=== PATIENT | male | born 1960 | race Two or more races ===

== ENCOUNTER 2019-02-21 19:56 | Emergency (ER) | payer SELFPAY ==
[~2019-02-21] VITALS: Ht 170.2 cm; Wt 80.7 kg
[~2019-02-21 19:56] MED LIST: IBUP1POW8; LOSA50TA26
[2019-02-22] MEDS: LIDOCAINE 1% HCL (LOCAL ANESTH.) INJ 20ML MDV ID ONE (00:35)
[2019-02-22 01:05] VITALS: BP 161/89
[2019-02-22] MEDS: TETANUS-DIPTH-ACEL PERTUSSIS 0.5ML SYRG IM ONE (01:32)
== END 2019-02-22 01:10 | disposition home or self-care (01) ==
LOC: ER 19:56
DX: S61.412A Laceration without foreign body of left hand, initial encounter (principal); I10 Essential (primary) hypertension; W26.9XXA Contact with unspecified sharp object(s), initial encounter; Y99.8 Other external cause status; Y93.89 Activity, other specified; Y92.89 Other specified places as the place of occurrence of the external cause
CPT/HCPCS: 12001; 90471; 90715; 99283; J2001

== ENCOUNTER 2020-04-09 14:33 | Inpatient (IN) | payer MEDICAID, OTHER, SELFPAY ==
[~2020-04-09] VITALS: Ht 165.1 cm; Wt 85.2 kg
[2020-04-09] MEDS ORDERED: SODIUM CHLORIDE 0.9% 1,000 ML IV ONE (14:59)
[2020-04-09] MEDS ORDERED: cefTRIAXone 1GM/50ML D5W 50 ML IV ONE (15:30)
[2020-04-09] MEDS ORDERED: DOXYCYCLINE 100 MG TAB/CAP PO ONE (15:30)
[2020-04-09] MEDS ORDERED: DexAMETHasone SOD PHOS 10MG/1ML VIAL INJ IV ONE (15:30)
[2020-04-09 18:19] LABS: Basophils # (auto) 0 10 ^3/uL (0-0.2); Basophils % (auto) 0.1 % (0.0-2.0); Eosinophils # (auto) 0 10 ^3/uL (0-0.8); Hematocrit 41.6 % (41.0-53.0); Hemoglobin 14.3 g/dL (13.5-17.5); Lymphocytes # (auto) 0.7 10 ^3/uL (0.4-5.4); Lymphocytes % (auto) 10.3 % (10.0-50.0); Mean Corpuscular Hemoglobin 30.9 pg (28.0-32.0); Mean Corpuscular Hgb Conc. 34.4 g/dL (32.0-36.0); Mean Corpuscular Volume 89.8 fL (80.0-100.0); Monocytes # (auto) 0.5 10 ^3/uL (0-1.3); Neutrophils # (auto) 5.6 10 ^3/uL (1.6-8.6); Neutrophils % (auto) 82.6 % (37.0-80.0); Platelet Count (auto) 147 10^3/uL (140-450); Red Blood Cells 4.63 10^6/uL (4.5-5.90); White Blood Cell 6.8 10^3/uL (4.4-10.8)
[2020-04-09 18:39] LABS: Alanine Aminotransferase 49 U/L (16-61); Albumin 2.7 g/dL (3.4-5.0); Anion Gap 6 (5-15); Aspartate Aminotransferase 38 U/L (15-37); Blood Urea Nitrogen 14 mg/dL (7-18); Calcium 7.4 mg/dL (8.5-10.1); Carbon Dioxide 26 mmol/L (21-32); Chloride 106 mmol/L (98-107); GFR African American 98 mL/min; GFR Non-African American 81 mL/min; Glucose 105 mg/dL (74-106); Potassium 3.7 mmol/L (3.5-5.1); Sodium 138 mmol/L (136-145)
[2020-04-09 18:46] LABS: Alkaline Phosphatase 90 U/L (45-117); Bilirubin, Total 0.6 mg/dL (0.2-1.0); Total Protein 6.7 g/dL (6.4-8.2)
[2020-04-09] MEDS ORDERED: SODIUM CHLORIDE 0.9% 1,000 ML IV SCH (19:32)
[2020-04-09] MEDS ORDERED: ACETAMINOPHEN 500 MG TAB PO PRN (19:45)
[2020-04-09] MEDS ORDERED: PROMETHAZINE HCL 25 MG/ML 1ML IV PRN (19:45)
[2020-04-09] MEDS ORDERED: NITROGLYCERIN 0.4 MG SL TAB SL PRN (19:45)
[2020-04-09] MEDS ORDERED: MORPHINE SULF INJ 2 MG/ML SYRINGE 1ML IV PRN (19:45)
[2020-04-09] MEDS ORDERED: levoFLOXacin 500MG 100 ML IV ONE (19:45)
[2020-04-09] MEDS ORDERED: traMADol HCL 50 MG TAB PO PRN (19:45)
[2020-04-09] MEDS ORDERED: ALBUTEROL SULF 2.5 MG/0.5ML(0.5%) NEB SOLN NEB PRN (19:45)
[2020-04-09] MEDS ORDERED: TEMAZEPAM 15 MG CAP PO PRN (19:45)
[2020-04-09] MEDS ORDERED: LACTULOSE 20Gm/30ML SOLN PO PRN (19:45)
[2020-04-09] MEDS ORDERED: ALBUTEROL SULF HFA 90MCG INH 200DOSE IN SCH (22:00)
[2020-04-09] MEDS: FAMOTIDINE 20 MG TAB PO SCH (23:04)
[2020-04-09] MEDS: methylPREDNISolone SOD SUCC 40 MG/ML VL IV SCH (23:04)
[2020-04-09] MEDS: CLINDAMYCIN 600MG IV 50 ML IV SCH (23:04)
[2020-04-09] MEDS: ENOXAPARIN SOD 80 MG/0.8ML SYRINGE SC SCH (23:05)
--- NOTE | 2020-04-09 23:40 | NUR ---
Telemetry admit from ER Patient admitted to Telemetry unit, no SBAR received. Patient oriented to primary RN, unit, room, bed, and unit policies regarding patient care and visiting hours. Patient now on continuous telemetry monitoring, tele box #5 and telemetry reading on arrival to unit is 70 BPM. Patient placed on bedside oxygen 2L NC, weighed by bed scale and encouraged to call if they need something. Bed in lowest locked position with two side rails raised and call hidalgo within reach. Instructed on POC, All questions and concerns addressed, patient verbalized understanding.
[2020-04-10] VITALS (7 sets, daily range): BP systolic 133–152; BP diastolic 72–95
[2020-04-10] MEDS: CLINDAMYCIN 600MG IV 50 ML IV SCH ×3 (05:52→21:55)
[2020-04-10] MEDS: methylPREDNISolone SOD SUCC 40 MG/ML VL IV SCH ×2 (07:02→20:28)
--- NOTE | 2020-04-10 07:28 | NUR ---
Respiratory note: POX CHECK, NO RESP DISTRESS NOTED. HR 80, RR 18, SPO2 94% ON 2L N/C. BS ARE CLEAR. WILL CONTINUE TO MONITOR.
--- NOTE | 2020-04-10 07:48 | NUR ---
OPENING SHIFT NOTE Assumed care of patient. PT is awake and alert and eating breakfast comfortably in bed. No S/S of distress/SOB. Instructed on POC and to call for assist PRN. Bed in lowest locked position, call light within reach, side rails up x2, fall precautions in place. Will continue to monitor for changes Q1hr and PRN.
[2020-04-10 08:36] LABS: Basophils # (auto) 0 10 ^3/uL (0-0.2); Basophils % (auto) 0.9 % (0.0-2.0); Eosinophils # (auto) 0 10 ^3/uL (0-0.8); Hematocrit 46.1 % (41.0-53.0); Hemoglobin 15.7 g/dL (13.5-17.5); Lymphocytes # (auto) 0.6 10 ^3/uL (0.4-5.4); Lymphocytes % (auto) 11.4 % (10.0-50.0); Mean Corpuscular Volume 91.3 fL (80.0-100.0); Monocytes # (auto) 0.2 10 ^3/uL (0-1.3); Monocytes % (auto) 4.3 % (0.0-12.0); Neutrophils # (auto) 4.2 10 ^3/uL (1.6-8.6); Neutrophils % (auto) 83.4 % (37.0-80.0); Nucleated Red Blood Cells % 0.1 %; Platelet Count (auto) 173 10^3/uL (140-450); Red Blood Cells 5.05 10^6/uL (4.5-5.90); Red Cell Distribution Width 12.9 % (11.8-14.3)
[2020-04-10 09:11] LABS: Albumin 2.8 g/dL (3.4-5.0); Potassium 3.6 mmol/L (3.5-5.1)
[2020-04-10 09:19] LABS: BUN/Creatinine Ratio 16.7; Bilirubin, Total 0.6 mg/dL (0.2-1.0); Total Protein 7.5 g/dL (6.4-8.2)
[2020-04-10] MEDS: ASCORBIC ACID 1,000 MG TAB PO SCH (10:12)
[2020-04-10] MEDS: FAMOTIDINE 20 MG TAB PO SCH ×2 (10:12→21:55)
[2020-04-10] MEDS: levoFLOXacin 500MG 100 ML IV SCH (10:12)
[2020-04-10] MEDS: ZINC SULFATE 220mg CAP or TAB PO SCH (10:12)
[2020-04-10] MEDS: ENOXAPARIN SOD 80 MG/0.8ML SYRINGE SC SCH ×2 (10:12→21:55)
[2020-04-10] MEDS ORDERED: BUDESONIDE (INHALATION) 0.5 MG/2 ML NEB NEB ONE (12:00)
--- NOTE | 2020-04-10 19:40 | NUR ---
Opening Shift Note Assumed care of patient, awake and alert. No S/S of distress/SOB or pain. POC discussed and questions answered. Bed is locked in lowest position with side rails up x2 for safety. Call light is within reach and patient encouraged to call as needed, will continue to monitor for changes Q1hr and PRN.
[2020-04-10] MEDS: BUDESONIDE (INHALATION) 0.5 MG/2 ML NEB NEB SCH (22:26)
[2020-04-11] VITALS (7 sets, daily range): BP systolic 142–156; BP diastolic 80–97
[2020-04-11] MEDS: CLINDAMYCIN 600MG IV 50 ML IV SCH ×3 (05:55→22:13)
[2020-04-11] MEDS: BUDESONIDE (INHALATION) 0.5 MG/2 ML NEB NEB SCH ×2 (07:32→23:00)
--- NOTE | 2020-04-11 07:32 | NUR ---
RT NOTE: PULMICORT TX HELD DUE TO PT NOT BEING IN NEGATIVE PRESSURE ROOM.
--- NOTE | 2020-04-11 08:37 | NUR ---
OPENING SHIFT NOTE Resumed care of patient. PT is alert and oriented. No S/S of distress/SOB. Instructed on POC and to call for assist PRN. Bed in lowest locked position, call light within reach, side rails up x2, fall precautions in place. Will continue to monitor for changes Q1hr and PRN.
[2020-04-11] MEDS: methylPREDNISolone SOD SUCC 40 MG/ML VL IV SCH ×2 (08:41→22:12)
[2020-04-11] MEDS: FAMOTIDINE 20 MG TAB PO SCH ×2 (09:30→22:13)
[2020-04-11] MEDS: ZINC SULFATE 220mg CAP or TAB PO SCH (09:30)
[2020-04-11] MEDS: ASCORBIC ACID 1,000 MG TAB PO SCH (09:30)
[2020-04-11] MEDS: ENOXAPARIN SOD 80 MG/0.8ML SYRINGE SC SCH ×2 (09:30→22:13)
[2020-04-11] MEDS: levoFLOXacin 500MG 100 ML IV SCH (09:30)
--- NOTE | 2020-04-11 19:10 | NUR ---
Opening Shift Note Assumed care of patient, awake and alert. No S/S of distress/SOB or pain. Instructed on POC and to call for assist PRN, will continue to monitor for changes Q1hr and PRN.
[2020-04-12 05:18] VITALS: BP 148/88
[2020-04-12] MEDS: CLINDAMYCIN 600MG IV 50 ML IV SCH ×2 (05:38→13:03)
--- NOTE | 2020-04-12 07:05 | NUR ---
Closing Note Patient status has not change, endorsed care to dayshift nurse.
[2020-04-12] MEDS: methylPREDNISolone SOD SUCC 40 MG/ML VL IV SCH (07:45)
[2020-04-12 09:39] VITALS: BP 147/86
[2020-04-12] MEDS: levoFLOXacin 500MG 100 ML IV SCH (10:00)
[2020-04-12] MEDS: ZINC SULFATE 220mg CAP or TAB PO SCH (10:00)
[2020-04-12] MEDS: ENOXAPARIN SOD 80 MG/0.8ML SYRINGE SC SCH (10:00)
[2020-04-12] MEDS: FAMOTIDINE 20 MG TAB PO SCH (10:00)
[2020-04-12] MEDS: ASCORBIC ACID 1,000 MG TAB PO SCH (10:00)
[2020-04-12 12:43] VITALS: BP 140/98
[2020-04-12] MEDS ORDERED: POTASSIUM CHL 20 Meq TABLET PO ONE (14:15)
[2020-04-12] MEDS ORDERED: FUROSEMIDE 40 MG/4 ML VIAL IV ONE (14:15)
--- NOTE | 2020-04-12 14:18 | NUR ---
MD MOREL ROUNDED ON PATIENT ORDER FOR LASIX X1 THEN POSSIBLE DISCHARGE THIS EVENING
[2020-04-12] MEDS ORDERED: MULTTAB75 PO (16:28)
[2020-04-12] MEDS ORDERED: METH4PAK PO (16:28)
[2020-04-12] MEDS ORDERED: LEVO750T64 PO (16:28)
[2020-04-12] MEDS ORDERED: POM PO (16:28)
[2020-04-12] MEDS ORDERED: ASCO10003 PO (16:28)
[2020-04-12 16:42] VITALS: BP 143/92
--- NOTE | 2020-04-12 18:21 | NUR ---
PT DISCHARGED HOME TELE MONITOR REMOVED SENT BACK TO TELE, IV REMOVED DRESSING IN PLACE, NO RESPIRATORY DISTRESS NOTED/
[2020-04-12] MEDS ORDERED: PULMICORT 180 MCG FLEXHALER PO SCH (22:00)
== END 2020-04-12 18:20 | disposition home or self-care (01) | DRG 137 ==
LOC: ER 14:33 → TELE 14:34 → TELE-EAST 23:33
PROVIDERS: ADMIT Internal Medicine; ATTEND Internal Medicine
DX: U07.1 COVID-19 (principal); E43 Unspecified severe protein-calorie malnutrition; J12.89 Other viral pneumonia; J96.00 Acute respiratory failure, unspecified whether with hypoxia or hypercapnia; I10 Essential (primary) hypertension; Z68.31 Body mass index [BMI] 31.0-31.9, adult
CPT/HCPCS: 36415; 71045; 80053; 83880; 84484; 85025; 87070; 87804; 87880; 96361; 96374; G0378; J0696; J1100; J1956; J3490

== ENCOUNTER 2021-06-19 17:04 | Emergency (ER) | payer MEDICAID ==
[~2021-06-19] VITALS: Ht 172.7 cm; Wt 82.6 kg
[~2021-06-19 17:04] MED LIST changes: +ASCO10003 PO; -IBUP1POW8; +LEVO750T64 PO; -LOSA50TA26; +LOSA50TA7; +METH4PAK PO; +MULTTAB75 PO; +POM PO
[2021-06-19] MEDS ORDERED: cloNIDine HCL 0.1 MG TAB ONE (17:10)
[2021-06-19] MEDS ORDERED: cloNIDine HCL 0.1 MG TAB PO ONE (17:15)
[2021-06-19 18:12] LABS: Basophils # (auto) 0 10 ^3/uL (0-0.2); Basophils % (auto) 0.5 % (0.0-2.0); Eosinophils # (auto) 0.1 10 ^3/uL (0-0.8); Eosinophils % (auto) 0.8 % (0.0-7.0); Hematocrit 44.6 % (41.0-53.0); Hemoglobin 15.5 g/dL (13.5-17.5); Lymphocytes # (auto) 1.3 10 ^3/uL (0.4-5.4); Lymphocytes % (auto) 14.1 % (10.0-50.0); Mean Corpuscular Hemoglobin 31.2 pg (28.0-32.0); Mean Corpuscular Hgb Conc. 34.8 g/dL (32.0-36.0); Mean Corpuscular Volume 89.6 fL (80.0-100.0); Monocytes # (auto) 0.6 10 ^3/uL (0-1.3); Monocytes % (auto) 6.9 % (0.0-12.0); Neutrophils # (auto) 7.1 10 ^3/uL (1.6-8.6); Neutrophils % (auto) 77.7 % (37.0-80.0); Red Blood Cells 4.98 10^6/uL (4.5-5.90); Red Cell Distribution Width 12.8 % (11.8-14.3); White Blood Cell 9.2 10^3/uL (4.4-10.8)
[2021-06-19 18:28] LABS: Albumin 3.7 g/dL (3.4-5.0); Anion Gap 6 (5-15); Blood Urea Nitrogen 16 mg/dL (7-18); Calcium 8.6 mg/dL (8.5-10.1); Carbon Dioxide 29 mmol/L (21-32); Chloride 108 mmol/L (98-107); Glucose 110 mg/dL (74-106); Potassium 3.2 mmol/L (3.5-5.1); Sodium 143 mmol/L (136-145)
[2021-06-19 18:33] LABS: Alanine Aminotransferase 35 U/L (16-61); Alkaline Phosphatase 120 U/L (45-117); Aspartate Aminotransferase 24 U/L (15-37); BUN/Creatinine Ratio 15.4; Bilirubin, Total 0.5 mg/dL (0.2-1.0); GFR African American 93 mL/min; GFR Non-African American 77 mL/min; Total Protein 7.1 g/dL (6.4-8.2)
[2021-06-19] MEDS ORDERED: POTASSIUM CHL 20 Meq TABLET PO ONE (18:45)
[2021-06-19 20:30] VITALS: BP 163/84
== END 2021-06-19 21:08 | disposition home or self-care (01) ==
LOC: ER 17:04
DX: R42 Dizziness and giddiness (principal); I16.0 Hypertensive urgency; I10 Essential (primary) hypertension
CPT/HCPCS: 36415; 70450; 80053; 84484; 85025; 93005

== ENCOUNTER 2022-08-10 10:42 | Emergency (ER) | payer OTHER, MEDICAID ==
[~2022-08-10] VITALS: Ht 170.2 cm; Wt 81.6 kg
[2022-08-10 11:47] VITALS: BP 167/95
[2022-08-10] MEDS ORDERED: cloNIDine HCL 0.1 MG TAB PO ONE (12:30)
[2022-08-10] MEDS ORDERED: LISI-707 PO (13:45)
== END 2022-08-10 14:37 | disposition home or self-care (01) ==
LOC: ER 10:42
DX: I10 Essential (primary) hypertension (principal); G44.209 Tension-type headache, unspecified, not intractable
CPT/HCPCS: 70450; 93005

== ENCOUNTER 2025-07-29 18:55 | Emergency (ER) | payer OTHER, MEDICAID ==
[~2025-07-29] VITALS: Ht 167.6 cm; Wt 81.8 kg
[~2025-07-29 18:55] MED LIST changes: +LEVO750T40 PO; -LEVO750T64 PO; +LISI-707 PO; +LOSA50TA12; -LOSA50TA7
--- NOTE | 2025-07-29 19:15 | ED.PDOC ---
History of Present Illness HPI Comments 65 year old male with PMHx HTN presents to the ED with a chief complaint of hypertension onset 1 day. Patient states he was experiencing dizziness yesterday, checked BP, was elevated took medication, took BP an hour after was still elevated, took another dose of medication, went to bed. This morning he checked BP, was still elevated, took morning dose. Around noon he began experiencing headache, BP was elevated. Upon ED arrival BP was 208/114. Currently rates headache 03/10. Denies chest pain, nausea, vomiting, diarrhea, shortness of breath, fever, chills, abdominal pain, weakness, numbness/tingling, blurred vision. No other symptoms or modifying factors present at this time. REVIEW OF SYSTEMS: General: No fever, no chills, or fatigue HEENT: No sore throat, no earache, no congestion, no neck pain. Cardiac: No chest pain. No palpitations. Lungs: No shortness of breath, no cough. GI: No nausea, no vomiting, no diarrhea, no constipation, no abdominal pain : No dysuria, frequency, or urgency. No hematuria. Musculoskeletal: No joint pain , no joint swelling, no extremity edema. Skin: No rash, no itching. Neuro: Headache, dizziness. (And as sated in HPI) PHYSICAL EXAM: General: Awake, alert and oriented. No acute distress. Skin: Skin in warm, dry and intact. Appropriate color for ethnicity. HEENT: The head is normocephalic and atraumatic. Conjunctivae are clear without exudates or hemorrhage. Sclera is non-icteric. Eyelids are normal in appearance without swelling or lesions. Oral mucosa is pink and moist Neck: The neck is supple with normal range of motion. No JVD. Cardiac: Heart rate and rhythm are normal. No murmurs, gallops, or rubs are auscultated. Respiratory: No signs of respiratory distress. Lung sounds are clear in all lobes bilaterally without rales, rhonchi, or wheezes. Abdominal: Abdomen is soft, non-tender without distention, guarding or rigidity. Bowel sounds are present and normoactive in all four quadrants. Extremities: Upper and lower extremities are atraumatic in appearance without deformity or edema. Neurological: The patient is awake, alert and oriented to person, place, and time with normal speech. Speech is clear. There is no facial asymmetry. No apparent neuro deficit. Psychiatric: Appropriate mood and affect. Good judgement and insight. Chief Complaint: High Blood Pressure Time Seen by MD: 19:15 Primary Care Provider: TISH Reviewed Notes: Medications, Allergies Allergies: Coded Allergies: NO KNOWN ALLERGIES (Unverified , 06/06/11) Home Meds Active Scripts Lisinopril & Hydrochlorothiazi (Zestoretic 20-25 mg) 1 Tab Tab, 1 TAB PO DAILY, #20 TAB Prov:SKIP ORDONEZ 08/10/22 Multiple Vitamins W/ Minerals (Strovite One) Tab, 1 TAB PO DAILY, #60 TAB 0 Refills Prov:TEODORO MOREL MD 04/12/20 Levofloxacin Hemihydrate (LEVOFLOXACIN) 750 Mg Tab, 1 TAB PO DAILY, #3 TAB Prov:TEODORO MOREL MD 04/12/20 Patients Own Medication (PATIENTS OWN MEDICATION) ., 180 MCG PO BID, #1 MISC PTS OWN MED-OBTAIN FROM PT AND SEND TO RX DRUG: FREQ: RX# EXP: DATE DISP: TECH: RPH: Prov:TEODORO MOREL MD 04/12/20 Methylprednisolone (Medrol Dosepak) 4 Mg Santi, 4 MG PO UD, #21 TAB UAD Prov:TEODORO MOREL MD 04/12/20 Ascorbic Acid (Gnp Vitamin C W/Beverley Hips) 1,000 Mg Tab, 1000 MG PO DAILY for 60 Days, #60 TAB Prov:TEODORO MOREL MD 04/12/20 Reported Medications Losartan Potassium (Cozaar) 50 Mg Tab 01/10/13 Information Source: Patient Mode of Arrival: Ambulatory Severity: Moderate Timing: Days Duration: Since onset Prehospital treatment: None Past Medical History PAST MEDICAL HISTORY: HTN Surgical History: Denies all surgeries Family History Family History: Reviewed,noncontributory to illness Social History Smoker: Non-Smoker Alcohol: Rarely Drugs: Denies Drug Use Lives In: Home Was a procedure done? Was a procedure done?: No EKG EKG : Pulse Rate (adult): 65 Cardiac Rhythm: NSR Differential Dx Considerations may include: Since the emergency, hypertensive emergency, end-organ damage, congestive heart failure, cardiomyopathy, electrolyte imbalance, migraine, CVA other X-Ray, Labs, Meds, VS Vital Signs Date Time Temp Pulse Resp B/P (MAP) Pulse Ox O2 Delivery O2 Flow Rate FiO2 07/29/25 23:00 64 10 128/76 (93) 94 07/29/25 22:48 65 07/29/25 22:37 65 07/29/25 21:30 68 11 150/79 (102) 95 07/29/25 21:00 66 12 161/94 (116) 93 07/29/25 20:38 98.2 07/29/25 20:37 68 162/89 07/29/25 20:00 68 10 162/89 (113) 93 07/29/25 20:00 68 07/29/25 19:38 98.3 07/29/25 19:37 77 195/103 07/29/25 19:30 98.4 79 12 195/103 (133) 94 98.4 07/29/25 19:30 Room Air* 0 21 07/29/25 19:03 98.2 82 16 208/114 97 98.2 Lab Test 07/29/25 20:04 07/29/25 19:53 07/29/25 19:17 Range/Units Troponin I High Sensitivity 11 10 </=54 ng/L POC Glucose 123 H 70-106 mg/dl White Blood Count 12.2 H 4.4-10.8 10^3/uL Red Blood Count 5.66 4.5-5.90 10^6/uL Hemoglobin 17.3 13.5-17.5 g/dL Hematocrit 49.8 41.0-53.0 % Mean Corpuscular Volume 88.1 80.0-100.0 fL Mean Corpuscular Hemoglobin 30.6 28.0-32.0 pg Mean Corpuscular Hemoglobin Concent 34.7 32.0-36.0 g/dL Red Cell Distribution Width 12.8 11.8-14.3 % Platelet Count 214 140-450 10^3/uL Mean Platelet Volume 8.7 6.9-10.8 fL Neutrophils (%) (Auto) 66.8 37.0-80.0 % Lymphocytes (%) (Auto) 23.9 10.0-50.0 % Monocytes (%) (Auto) 7.1 0.0-12.0 % Eosinophils (%) (Auto) 1.5 0.0-7.0 % Basophils (%) (Auto) 0.7 0.0-2.0 % Neutrophils # (Auto) 8.2 1.6-8.6 10 ^3/uL Lymphocytes # (Auto) 2.9 0.4-5.4 10 ^3/uL Monocytes # (Auto) 0.9 0-1.3 10 ^3/uL Eosinophils # (Auto) 0.2 0-0.8 10 ^3/uL Basophils # (Auto) 0.1 0-0.2 10 ^3/uL Nucleated Red Blood Cells 0.0 % Sodium Level 139 136-145 mmol/L Potassium Level 3.1 L 3.5-5.1 mmol/L Chloride Level 100 98-107 mmol/L Carbon Dioxide Level 30 20-31 mmol/L Anion Gap 9 5-15 Blood Urea Nitrogen 19 9-23 mg/dL Creatinine 1.00 0.700-1.30 mg/dL Glomerular Filtration Rate Calc 82 >90 mL/min BUN/Creatinine Ratio 19.0 10.0-20.0 Serum Glucose 106 74-106 mg/dL Calcium Level 9.9 8.7-10.4 mg/dL B-Type Natriuretic Peptide 16.99 0-100 pg/mL Current Medications Medications (Trade) Dose Ordered Sig/Faith Route Start Time Stop Time Status Last Admin Labetalol HCl (Labetalol HCl) 10 mg ONCE ONCE IV 07/29/25 19:15 07/29/25 19:16 DC 07/29/25 19:37 Acetaminophen (Tylenol Tablet Or Capsule) 1,000 mg ONCE ONCE PO 07/29/25 19:15 07/29/25 19:16 DC 07/29/25 19:38 Potassium Bicarbonate (Klor-Con/Ef) 50 meq ONCE ONCE PO 07/29/25 23:30 07/29/25 23:31 DC 07/29/25 23:32 [place] [address] Ph: [phone] DIAGNOSTIC IMAGING Diagnostic Imaging Report : [id number] Signed PATIENT: PHILIP ARAIZA ACCT: [id number] UNIT: [id number] : 1960 LOC: ER ROOM / BED: / AGE / SEX: 65 / M ADM STATUS: REG ER SERVICE 07 ORDERING PHYSICIAN: FER MICHAELS MD PROCEDURE(s): CXR1 - CHEST XRAY 1 VIEW REASON: cp ORDER NUMBER(s): [id number], ACCESSION NUMBER(s): [id number] CHEST RADIOGRAPH Indication: cp Technique: Single frontal view of the chest was obtained Comparison: EKG on DOS: 08/10/22 FINDINGS: Lines and Tubes: None Lungs: No focal consolidation. Prominence of the right paratracheal stripe Pleura: No effusion. No pneumothorax. Cardiomediastinal contours: Unremarkable Bones: No acute osseous abnormality. IMPRESSION: No acute cardiopulmonary disease. Prominence of the right paratracheal stripe which may be from vasculature with prominent thyroid gland/Mediastinal mass not completely excluded. CT may be considered for further evaluation. ATED BY: IZABELLA TODD DO DICTATED DATE/TIME: 07/29/251946 SIGNED BY: IZABELLA TODD DO SIGNED DATE/TIME: 07/29/251946 CC: Time of 1ST Reevaluation: 19:45 Reevaluation 1ST: Unchanged Patient Education/Counseling: Need For Follow Up Family Education/Counseling: No Family Present SEPSIS Sepsis Screen Date sepsis recognized/suspect: Jul 29, 2025 Time Sepsis recognized/suspect: 1907 Recent Procedure: No On Antibiotic Therapy: No Respiratory Rate >20: No Heart Rate >90: No Temp<36 C (96.8 F) or >38.3 C: No SBP <90 or MAP <65 mmHG: No New Acute Mental Status Change: No Is the patient on CPAP, BIPAP,: No Physician Orders Chest Xray 1 View (07/29/25 19:08) History Teacher (07/29/25 ) Electrocardigram (07/29/25 20:08) Electrocardigram (07/29/25 22:08) Vital Signs Date Time Temp Pulse Resp B/P (MAP) Pulse Ox O2 Delivery O2 Flow Rate FiO2 07/29/25 23:00 64 10 128/76 (93) 94 07/29/25 22:48 65 07/29/25 22:37 65 07/29/25 21:30 68 11 150/79 (102) 95 07/29/25 21:00 66 12 161/94 (116) 93 07/29/25 20:38 98.2 07/29/25 20:37 68 162/89 07/29/25 20:00 68 10 162/89 (113) 93 07/29/25 20:00 68 07/29/25 19:38 98.3 07/29/25 19:37 77 195/103 07/29/25 19:30 98.4 79 12 195/103 (133) 94 98.4 07/29/25 19:30 Room Air* 0 21 07/29/25 19:03 98.2 82 16 208/114 97 98.2 Laboratory Tests Test 07/29/25 19:17 White Blood Count 12.2 10^3/uL (4.4-10.8) H Medications Medications Dose Ordered Sig/Faith Route Start Time Stop Time Status Last Admin Dose Admin Acetaminophen 1,000 mg ONCE ONCE PO 07/29/25 19:15 07/29/25 19:16 DC 07/29/25 19:38 Labetalol HCl 10 mg ONCE ONCE IV 07/29/25 19:15 07/29/25 19:16 DC 07/29/25 19:37 Potassium Bicarbonate 50 meq ONCE ONCE PO 07/29/25 23:30 07/29/25 23:31 DC 07/29/25 23:32 Departure 1 Departure Time of Disposition: 21:41 Impression: Primary Impression: Hypertension Additional Impression: Leukocytosis Disposition: 01 HOME / SELF CARE / HOMELESS Condition: Stable Additional Instructions: Bandage discharge IN[employer]CCIONES DE MART[employer] Urgencias Instrucciones: Lilliana atentamente todas las instrucciones proporcionadas en royer paquete. Aunque le hayan dado el martínez del Departamento de Emergencias, esto no significa que tenga un "certificado de buena yolande". [] Hoy no se nair realizado ningn diagnstico definitivo para lorrie sntomas. Es posible que ests en proceso de desarrollar ari enfermedad grave. Es por eso que debe regresar al servicio de urgencias sin falta si presenta algn sntoma nuevo o que empeora (especialmente si lorrie sntomas incluyen dolor en el pecho, dificultad para respirar, dolor abdominal, fiebre, dolor de denilson, confusin, dificultad para nancie o caminar). Teodora es muy importante que consulte a un mdico de atencin primaria dentro de los prximos 3 a 5 trevino para realizar un seguimiento. Si no puede conseguir ari kylah, regrese al servicio de urgencias para ari nueva evaluacin. Hoy tuviste ari lectura de presin arterial elevada. La hipertensin no tratada puede tener consecuencias graves. Sin embargo, necesitas ari kylah de seguimiento para volver a revisar tu presin arterial y determinar si necesitas tratamiento o no. Haz ari kylah con tu proveedor de atencin primaria para esto dentro de la prxima semana. Dolor de denilson por migraa: instrucciones de cuidado Tabla de contenido Descripcin general Freelance Makeup Artist puedes cuidarte en casa? Cundo debes pedir ayuda? Crditos Descripcin general Las migraas son edenilson de denilson punzantes y dolorosos que suelen comenzar en un lado de la denilson. Pueden causar nuseas y vmitos y hacer que el paciente se vuelva sensible a la marily, los sonidos o los olores. Sin tratamiento, las migraas pueden durar desde 4 horas hasta algunos trevino. Los medicamentos pueden ayudar a prevenir las migraas o detenerlas ari vez que hayan comenzado. Street mdico puede ayudarlo a encontrar los que funcionan mejor para usted. El seguimiento mdico es ari parte fundamental de street tratamiento y street seguridad. Asegrese de programar y acudir a todas las citas, y llame a street mdico si tiene problemas. Teodora es ari buena idea saber los resultados de lorrie pruebas y llevar ari lista de los medicamentos que verona. Freelance Makeup Artist puedes cuidarte en casa? No conduzca si nair tomado algn analgsico recetado. Descanse en ari habitacin tranquila y oscura hasta que desaparezca el dolor de denilson. Cierre los ojos e intente relajarse o dormir. No ji televisin ni lilliana. Coloque un angela hmedo y fro o ari compresa fra sobre la kennedi dolorida jersey 10 a 20 minutos cada vez. Coloque un angela tanner entre la compresa fra y la piel. Utilice ari toalla tibia y hmeda o ari almohadilla trmica a temperatura baja para relajar los msculos tensos de los hombros y el emily. Pdale a alguien que le masajee suavemente el emily y los hombros. [place] lorrie medicamentos exactamente giorgio le hayan recetado. Llame a strete mdico si edilberto que tiene un problema con street medicamento. Recibir ms detalles sobre los medicamentos especficos que le recete street mdico. No tome medicamentos para el dolor de denilson con demasiada frecuencia. Hable con street mdico si est tomando medicamentos ms de 2 trevino a la semana para aliviar el dolor de denilson. Alejandrina demasiados analgsicos puede provocar ms edenilson de denilson. Estos se denominan edenilson de denilson por uso excesivo de medicamentos. Para prevenir las migraas Lleva un diario de tus edenilson de denilson para que puedas identificar qu los desencadena. Evitar los desencadenantes puede ayudarte a prevenirlos. Registra cundo comenz cada dolor de denilson, cunto dur y jewellery designer fue. Anota cualquier otro sntoma que hayas tenido junto con el dolor de denilson, giorgio nuseas, luces intermitentes o manchas oscuras, o sensibilidad a la marily brillante o a los ruidos rowena. Anota si el dolor de denilson se produjo cerca de tu perodo. Haz ari lista de todo lo que podra alejandra desencadenado el dolor de denilson. Los desencadenantes pueden incluir ciertos alimentos (chocolate, queso, vino) u o margaret, humo, marily brillante, estrs o falta de sueo. Si street mdico le nair recetado medicamentos para las migraas, tmelos segn las indicaciones. Puede alejandrina medicamentos solo cuando le d migraa y medicamentos que tome todo el tiempo para ayudar a prevenir las migraas. Si street mdico le nair recetado un medicamento para cuando le duele la denilson, tmelo ante la primera seal de migraa, a menos que le haya dado otras instrucciones. Si street mdico le nair recetado medicamentos para prevenir las migraas, tmelos e xactamente giorgio se lo indiquen. Llame a street mdico si edilberto que tiene un problema con street medicamento. Busque formas saludables de lidiar con el estrs. Las migraas son ms comunes jersey o inmediatamente despus de perodos estresantes. Intente encontrar f ormas de reducir el estrs, giorgio practicar la atencin plena o ejercicios de respiracin profunda. Duerma yon y stacie ejercicio, livan tenga cuidado de no esforzarse demasiado jersey el ejercicio, ya que puede provocarle dolor de denilson. Siga un horario regular para comer. Evite los alimentos y las bebidas que suelen desencadenar migraas, giorgio el chocolate, el alcohol (especialmente el vino tinto y el oporto), el aspartamo, el glutamato monosdico (GMS) y algunos aditivos presentes en los alimentos (giorgio los perritos calientes, el tocino, los embutidos, los quesos curados y los encurtidos). Limite la cafena. No tome demasiado caf, t o refrescos, livan no deje de alejandrina cafena de repente, ya que tambin puede provocarle migraas. No fume ni permita que otras personas fumen cerca de usted. Si necesita ayuda para dejar de fumar, hable con street mdico sobre programas y medicamentos para dejar de fumar. Estos pueden aumentar lorrie probabilidades de dejar de fumar para siempre. Si est tomando pldoras anticonceptivas o terapia hormonal, hable con street mdico sobre si jayro son las causas de lorrie migraas. Cundo debes pedir ayuda? Llame al 911 en cualquier momento en que considere que puede necesitar atencin de emergencia. Por ejemplo, llame si: Tiene sntomas de un accidente cerebrovascular, que pueden incluir: Entumecimiento repentino, parlisis o debilidad en la lakshmi, el brazo o la pierna , especialmente en un solo lado del cuerpo. Cambios repentinos en la visin. Dificultad repentina para hablar. Confusin repentina o dificultad para comprender afirmaciones simples. Problemas repentinos con la marcha o el equilibrio. Un dolor de denilson repentino y chalino que es diferente a los edenilson de denilson anteriores. Llame a street mdico ahora o busque atencin mdica inmediata si: Tienes fiebre y el emily rgido. Tu dolor de denilson empeora mucho. Preste atencin a los cambios en street yolande y asegrese de comunicarse con street mdico si: Lorrie edenilson de denilson empeoran, ocurren con ms frecuencia o cambian de alguna manera. Tienes nuevos sntomas. Tu sheryl se ve alterada por tus edenilson de denilson. Por ejemplo, a menudo faltas al trabajo, a la escuela o a otras actividades. No mejoras giorgio esperabas Crditos para la migraa: instrucciones de cuidado Actualizado al: 3 de 2023 Autor: Personal de [facility] [address], [facility] Junta de revisin clnica Toda la educacin de [facility] [address], [facility] es revisada por un equipo que incluye mdicos, enfermeras, profesionales avanzados, dietistas registrados y otros profesionales de la yolande. Aprender sobre los recuentos altos de glbulos blancos Tabla de contenidos Qu son los glbulos blancos? Qu sucede cuando tiene un recuento alto de glbulos blancos? Crditos Qu son los glbulos blancos? Los glbulos blancos (leucocitos) ayudan a proteger street cuerpo de infecciones. Normalmente, cuando los grmenes ingresan a street cuerpo, street cuerpo produce ms glbulos blancos que buscan y destruyen los grmenes. Con menos frecuencia, hay problemas mdicos en los que el cuerpo puede producir muchos ms glbulos blancos de los que necesita. Qu sucede cuando tiene un recuento alto de glbulos blancos? Street recuento de glbulos blancos puede ser alto porque street cuerpo est luchando contra ari infeccin. Livan otras cosas pueden causarlo, giorgio algunos medic amentos, quemaduras, ari enfermedad u otros problemas de yolande. Cuando street mdico suzy que street recuento de glbulos blancos es alto, tratar de averiguar por qu y luego tratar la causa. La atencin de seguimiento es ari parte clave de street tratamiento y seguridad. Asegrese de programar y asistir a todas las citas, y llame a street mdico si tiene problemas. Tambin es ari buena idea conocer los resultados de lorrie pruebas y mantener ari lista de los medicamentos que verona. Crditos por aprender sobre los recuentos altos de glbulos blancos Vigente a: 2023 Autor: Personal de [employer] Junta de revisin clnica Toda la educacin de [employer] es revisada por un equipo que incluye mdicos, enfermeras, profesionales avanzados, dietistas registrados y otros profesionales de la yolande. Comments MDM: 65 year old male with elevated blood pressure and headache. Blood pressure and headache improved after treatment in the ED. Patient is feeling improvd in the ED. Mild leukocytosis noted however patient has no signs/symptoms of infection. Patient felt stable for discharge home. Patient well-appearing, nontoxic. Advised prompt follow-up with PCP, return to the ED with any new, worsening or concerning symptoms. I reviewed the following notes from the pt's past medical encounters: N/A The following tests were ordered, and results were reviewed by me: (See diagnostic results section) The following test were independently interpreted by me: EKG, chest x-ray-no acute disease Additional information was gathered from interviewing the following independent historians: N/A I reviewed and agreed with the following test results read by other providers: Chest x-ray I discussed treatments and results with patient Decision regarding hospitalization or escalation of hospital level of care: Risks and benefits of admission for further treatment of patient's condition was considered however due to patient's stable condition patient will be discharged to follow up closely or return to care for worsening of condition or inability to follow up. Critical Care Note Critical Care Time?: No Stability Stability form required: No Heart Score Heart Score: Heart Score Response (Comments) Value History N/A 0 EKG N/A 0 Age N/A 0 Risk Factors N/A 0 Troponin N/A 0 Total 0 I personally scribed for FER MICHAELS MD ([email or web address]) on 07/29/25 at 19:46. Electronically submitted by Mamie Huerta ([email or web address]). I personally scribed for FER MICHAELS MD ([email or web address]) on 07/29/25 at 20:26. Electronically submitted by Mamie Huerta ([email or web address]). I personally scribed for FER MICHAELS MD ([email or web address]) on 07/29/25 at 22:48. Electronically submitted by Mamie Huerta ([email or web address]). FER MICHAELS MD Jul 29, 2025 19:15
[2025-07-29] MEDS: LABETALOL HCL 20 MG/4 ML VL IV ONE (19:37)
[2025-07-29] MEDS: ACETAMINOPHEN 500 MG TAB or CAP PO ONE (19:38)
[2025-07-29 19:41] LABS: Hematocrit 49.8 % (41.0-53.0); Hemoglobin 17.3 g/dL (13.5-17.5); Mean Corpuscular Hemoglobin 30.6 pg (28.0-32.0); Mean Corpuscular Volume 88.1 fL (80.0-100.0); Nucleated Red Blood Cells % 0.0 %
[2025-07-29 19:47] LABS: Chloride 100 mmol/L (98-107)
[2025-07-29 19:48] LABS: Carbon Dioxide 30 mmol/L (20-31)
[2025-07-29 19:49] LABS: Calcium 9.9 mg/dL (8.7-10.4)
--- NOTE | 2025-07-29 19:49 | DVH ---
CHEST RADIOGRAPH Indication: cp Technique: Single frontal view of the chest was obtained Comparison: EKG on DOS: 08/10/22 FINDINGS: Lines and Tubes: None Lungs: No focal consolidation. Prominence of the right paratracheal stripe Pleura: No effusion. No pneumothorax. Cardiomediastinal contours: Unremarkable Bones: No acute osseous abnormality. IMPRESSION: No acute cardiopulmonary disease. Prominence of the right paratracheal stripe which may be from vasculature with prominent thyroid glan d/Mediastinal mass not completely excluded. CT may be considered for further evaluation.
[2025-07-29 19:54] LABS: Anion Gap 9 (5-15); BUN/Creatinine Ratio 19.0 (10.0-20.0); Blood Urea Nitrogen 19 mg/dL (9-23); Glucose 106 mg/dL (74-106); Potassium 3.1 mmol/L (3.5-5.1); Sodium 139 mmol/L (136-145)
[2025-07-29 20:38] VITALS: TEMP 98.2
--- NOTE | 2025-07-29 22:40 | ECG ---
[facility] Test Date: 2025-07-29 Test Time: 22:37:30 Pat Name: PHILIP ARAIZA Department: [facility] ED Patient ID: [id number] Room: Gender: M Refrigeration System Installer: KALANI : 1960 Requested By: FER MICHAELS Order Number: [id number] Reading MD: Measurements Intervals Miller Rate: 65 P: 72 CA: 153 QRS: 13 QRSD: 93 T: 27 QT: 430 QTc: 448 Interpretive Statements Sinus rhythm Abnormal R-wave progression, early transition Please click the below link to view image of tracing.
[2025-07-29 23:00] VITALS: BP 128/76; PULSE 64; RESP 10; O2SAT 94
[2025-07-29] MEDS: POTASSIUM EFFERVESENT TAB 25 MEQ PO ONE (23:32)
== END 2025-07-29 23:33 | disposition home or self-care (01) ==
LOC: ER 18:55
DX: I10 Essential (primary) hypertension (principal); D72.829 Elevated white blood cell count, unspecified; Z79.899 Other long term (current) drug therapy
CPT/HCPCS: 36415; 71045; 80048; 82947; 82962; 83880; 84484; 85025; 93005; 96374